=== PATIENT | female | born 1950 | race Caucasian/White ===

== ENCOUNTER 2019-03-15 09:46 | Day surgery (SDC) | payer MEDICARE ==
[2019-03-10 13:40] LABS: BASOPHILS # (AUTO) 0.1 X10'3 (0-0.2); EOSINOPHILS # (AUTO) 0.1 X10'3 (0-0.9); EOSINOPHILS % (AUTO) 1.7 % (0-6); HEMATOCRIT 43.4 % (35.0-45.0); HEMOGLOBIN 14.7 g/dl (12.0-16.0); LYMPHOCYTES # (AUTO) 2.8 X10'3 (1.1-4.8); LYMPHOCYTES % (AUTO) 37.3 % (21-51); MEAN CORPUSCULAR HEMOGLOBIN 32.5 PG (27.0-31.0); MEAN CORPUSCULAR HGB CONC 33.8 g/dL (33.0-36.5); MEAN CORPUSCULAR VOLUME 96.2 FL (78-98); MEAN PLATELET VOLUME 8.3 FL (7.4-10.4); MONOCYTES # (AUTO) 0.3 X10'3 (0-0.9); MONOCYTES % (AUTO) 4.1 % (2-12); NEUTROPHILS # (AUTO) 4.2 X10'3 (1.8-7.7); NEUTROPHILS % (AUTO) 55.9 % (42-75); PLATELET COUNT 330 X10'3 (140-440); RED BLOOD COUNT 4.51 X10'6 (4.20-5.60); RED CELL DISTRIBUTION WIDTH 13.3 % (11.5-14.5); WHITE BLOOD COUNT 7.5 X10'3 (4.5-11.0)
[2019-03-10 13:49] LABS: PARTIAL THROMBOPLASTIN TIME 31 SECONDS (22-32)
[2019-03-10 13:53] LABS: ALANINE AMINOTRANSFERASE 44 U/L (12-78); ALBUMIN/GLOBULIN RATIO 1.3 (1.1-1.5); ALKALINE PHOSPHATASE 118 IU/L (46-116); ANION GAP 9 (8-16); ASPARTATE AMINO TRANSFERASE 22 U/L (10-37); BILIRUBIN,TOTAL 0.6 MG/DL (0.1-1.0); BLOOD UREA NITROGEN 19 MG/DL (7-18); BUN/CREATININE RATIO 17.8 (6.6-38.0); CALCIUM 9.5 MG/DL (8.5-10.1); CHLORIDE 106 MMOL/L (99-107); CREATININE 1.07 MG/DL (0.40-0.90); GLUCOSE 110 MG/DL (70-104); POTASSIUM 3.7 MMOL/L (3.5-5.1); SODIUM 145 MMOL/L (135-145); TOTAL CARBON DIOXIDE 30.3 MMOL/L (24-32); TOTAL PROTEIN 7.2 G/DL (6.4-8.2); eGFR 51 ML/MIN
[2019-03-15] VITALS (12 sets, daily range): BP systolic 111–132; BP diastolic 60–84
[~2019-03-15] VITALS: Ht 160 cm; Wt 73.7 kg
[2019-03-15] MEDS ORDERED: nitroGLYCERIN 0.4mg SUBLingual tab SL PRN ×2 (10:10→13:50)
[2019-03-15] MEDS ORDERED: normal saline 1,000 ML IV SCH (10:15)
[2019-03-15] MEDS ORDERED: diphenhydrAMINE 25mg capsule PO PRN (10:15)
[2019-03-15] MEDS ORDERED: LORazepam 0.5 MG tablet PO PRN (10:15)
[2019-03-15] MEDS ORDERED: CITA40TA22 PO (10:53)
[2019-03-15] MEDS ORDERED: CYAN100070 PO (10:53)
[2019-03-15] MEDS ORDERED: FOLI-101 PO (10:53)
[2019-03-15] MEDS ORDERED: ATOR40TA71 PO (10:53)
[2019-03-15] MEDS ORDERED: METO-395 PO (10:53)
[2019-03-15] MEDS ORDERED: iohexol 350MG/ML 100ml bottle IV ONE (12:03)
[2019-03-15] MEDS ORDERED: midazolam 2 mg/2 ml injection ONE (12:03)
[2019-03-15] MEDS ORDERED: iohexol 350 MG/ML 50ML vial IV ONE (12:03)
[2019-03-15] MEDS ORDERED: heparin 1,000 UNITS/NS 500ml 500 ML ONE (12:03)
[2019-03-15] MEDS ORDERED: LIDOcaine 1% (10mg/ml)w/preservative injection 20ml MDV ONE (12:03)
[2019-03-15] MEDS ORDERED: fentaNYL/PF 50MCG/1 ML 2ML syringe ONE (12:03)
[2019-03-15] MEDS ORDERED: ondansetron/PF 4mg/2ml inj IV PRN (13:45)
[2019-03-15] MEDS ORDERED: normal saline 1000ml 1,000 ML IV SCH (13:45)
[2019-03-15] MEDS ORDERED: HYDROcodone/acetaminophen 5mg/325mg tablet PO PRN (13:45)
[2019-03-15] MEDS ORDERED: HYDROcodone/acetaminophen 10/325mg tab PO PRN (13:50)
[2019-03-15] MEDS ORDERED: OXAZEpam 15mg capsule PO PRN (13:50)
[2019-03-15] MEDS ORDERED: proCHLORperazine 10 MG/2 ml inj IV PRN (13:50)
== END 2019-03-15 18:55 | disposition home or self-care (01) ==
LOC: SSTAY O 09:46
PROVIDERS: ATTEND Internal Medicine Cardiovascular Disease
DX: R94.39 Abnormal result of other cardiovascular function study (principal); I25.10 Atherosclerotic heart disease of native coronary artery without angina pectoris; J44.9 Chronic obstructive pulmonary disease, unspecified; E78.5 Hyperlipidemia, unspecified; F32.9 Major depressive disorder, single episode, unspecified; I10 Essential (primary) hypertension; F17.210 Nicotine dependence, cigarettes, uncomplicated; Z88.0 Allergy status to penicillin; Z79.01 Long term (current) use of anticoagulants
CPT/HCPCS: 36415; 71046; 80053; 85025; 85610; 85730; 93458; 99152; 99153; C1769; J1644; J2001; J2250; J3010; J7030; Q0163; Q9967; A4620; A6258; C1760